=== PATIENT | female | born 1990 | race Two or more races ===

== ENCOUNTER 2017-01-31 08:17 | Emergency (ER) | payer BC, MEDICAID ==
[2017-01-31] MEDS ORDERED: NS 0.9% 1000 ML* 1,000 ML IV ONE (08:24)
[2017-01-31 08:53] LABS: Hematocrit 35 % (35-47); Hemoglobin 11.7 g/dl (12.0-16.0); Mean Corpuscular HGB Conc 33 g/dl (31-36); Mean Corpuscular Hemoglobin 27 pg (27-31); Mean Corpuscular Volume 81 fL (80-97); Mean Platelet Volume 9 um3 (7.4-10.4); Red Blood Count 4.32 10^6/ul (4.0-5.4); Red Cell Distribution Width 14 % (10.5-15); White Blood Count 6.7 10^3/ul (3.5-10.8)
[2017-01-31 09:13] LABS: Albumin 3.9 g/dL (3.2-5.2); BUN/Creatinine Ratio 13.5 (8-20); Calcium 9.4 mg/dL (8.6-10.3); EGFR African American 186.3 (>60); EGFR Non-African American 144.9 (>60); Globulin 2.9 g/dL (2-4); Magnesium 1.7 mg/dL (1.9-2.7); Potassium 3.6 mmol/L (3.5-5.0); Total Bilirubin 0.3 mg/dL (0.2-1.0); Total Protein 6.8 g/dL (6.4-8.9)
[2017-01-31] MEDS ORDERED: Magnesium Oxide TAB* 400 MG PO ONE (09:39)
[2017-01-31 10:04] LABS: Urine Bilirubin Negative (Negative); Urine Glucose Negative (Negative); Urine Nitrite Negative (Negative)
[2017-01-31 10:20] LABS: Benzodiazepine Urine Screen None Detected (None Detect)
[2017-01-31 10:24] VITALS: BP 108/62
--- NOTE | 2017-02-04 18:31 | ED ---
Jesus Alberto Irwin Thomas, scribed for Luis E Monae MD on 01/31/17 at 0829 . Syncope/Near Syncope - HPI Summary HPI Summary: The pt is a 26 y/o F who is 8-9 weeks BIBA s/p a syncopal episode that occurred earlier this morning when the patient was sitting on a bench. She has complaints of fatigue and nausea since last week. Pt denies any pain or vaginal bleeding. The patient is accompanied by her . - History Of Current Complaint Chief Complaint: EDSyncope Time Seen by Provider: 01/31/17 08:23 Hx Obtained From: Patient Onset/Duration: Lasting Hours - earlier this AM, Resolved Activity At Onset: Other - On a bench Aggravating Factor(s): Nothing Alleviating Factor(s): Spontaneous Resolution Associated Signs And Symptoms: Other - Syncope, fatigue, nausea; NEGATIVE: pain , vaginal bleeding Frequency: Episodes x___ - 1 - Allergies/Home Medications Allergies/Adverse Reactions: Allergies Allergy/AdvReac Type Severity Reaction Status Date / Time No Known Allergies Allergy Verified 01/31/17 08:29 Home Medications: Home Medications Levothyroxine TAB* [Synthroid 25 MCG TAB*] 25 mcg PO DAILY 01/31/17 [History Confirmed 01/31/17] Vitamin 1 tab PO DAILY 01/31/17 [History Confirmed 01/31/17] Progesterone SUPP (NF) [Endometrin SUPP (NF)] 100 mg VAGINAL BID 01/31/17 [ History Confirmed 01/31/17] PMH/Surg Hx/FS Hx/Imm Hx Previously Healthy: Yes Endocrine/Hematology History: Denies: Hx Diabetes Cardiovascular History: Denies: Hx Hypertension, Hx Pacemaker/ICD History: Denies: Hx Renal Disease Sensory History: Denies: Hx Hearing Aid Psychiatric History: Denies: Hx Panic Disorder Infectious Disease History: No Infectious Disease History: Denies: Traveled Outside the [place] in Last 30 Days - Family History Known Family History: Positive: Diabetes - Social History Lives: With Family Alcohol Use: None Hx Substance Use: No Substance Use Type: Reports: None Hx Tobacco Use: No Smoking Status (MU): Never Smoked Tobacco Review of Systems Positive: Fatigue. Negative: Fever Positive: Nausea Negative: other - vaginal bleeding Negative: Other - any pain Positive: Syncope All Other Systems Reviewed And Are Negative: Yes Physical Exam - Summary Physical Exam Summary: VITAL SIGNS: Reviewed. GENERAL: Patient is a well-developed and nourished female who is lying comfortable in the stretcher. Patient is not in any acute respiratory distress. HEAD AND FACE: No signs of trauma. No ecchymosis, hematomas or skull depressions. No sinus tenderness. EYES: PERRLA, EOMI x 2, No injected conjunctiva, no nystagmus. EARS: Hearing grossly intact. Ear canals and tympanic membranes are within normal limits. MOUTH: Oropharynx within normal limits. NECK: Supple, trachea is midline, no adenopathy, no JVD, no carotid bruit, no c- spine tenderness, neck with full ROM. CHEST: Symmetric, no tenderness at palpation LUNGS: Clear to auscultation bilaterally. No wheezing or crackles. CVS: Regular rate and rhythm, S1 and S2 present, no murmurs or gallops appreciated. ABDOMEN: Soft, non-tender. No signs of distention. No rebound no guarding, and no masses palpated. Bowel sounds are normal. EXTREMITIES: FROM in all major joints, no edema, no cyanosis or clubbing. NEURO: Alert and oriented x 3. No acute neurological deficits. Speech is normal and follows commands. SKIN: Dry and warm Triage Information Reviewed: Yes Vital Signs On Initial Exam: Initial Vitals Temp Pulse Resp BP Pulse Ox 97.4 F 80 14 127/81 97 01/31/17 08:26 01/31/17 08:26 01/31/17 08:26 01/31/17 08:26 01/31/17 08:26 Vital Signs Reviewed: Yes Diagnostics - Vital Signs Vital Signs Temp Pulse Resp BP Pulse Ox 01/31/17 08:26 97.4 F 80 14 127/81 97 - Laboratory Result Diagrams: 01/31/17 08:40 01/31/17 08:40 Lab Statement: Any lab studies that have been ordered have been reviewed, and results considered in the medical decision making process. - EKG 08:33 Cardiac Rate: NL EKG Rhythm: Sinus Rhythm EKG Interpretation: [address] elevations. Normal axis. TWI in III. Course/Dx Assessment/Plan: The pt is a 26 y/o F who is 8-9 weeks BIBA s/p a syncopal episode that occurred earlier this morning when the patient was sitting on a bench. She has complaints of fatigue and nausea since last week. Pt denies any pain or vaginal bleeding. The patient is accompanied by her . Test results are without significant abnormality. Urinalysis is negative for UTI. It seems that the patient had a vasovagal syncope. The patient was hydrated and she is back to her normal self. The patient does not have any abd pain or cramping. She denies any vaginal bleeding or discharge; therefore, I did not do an ultrasound since the patient is asymptomatic. The patient is hemodynamically stable and is ambulating without difficulty. - Diagnoses Provider Diagnoses: Vasovagal syncope, Discharge - Discharge Plan Condition: Stable Disposition: HOME Patient Education Materials: (ED), Syncope (ED) Forms: *Work Release Referrals: Sudha Francisco MD [Primary Care Provider] - 3 Days Additional Instructions: Follow up with your primary care provider in 3 days. Return to the emergency department for any new or worsening symptoms. The documentation as recorded by the Jesus Alberto chino Thomas accurately reflects the service I personally performed and the decisions made by , Luis E Monae MD.
== END 2017-01-31 10:33 | disposition home or self-care (01) ==
LOC: ED 08:17
DX: O26.891 Other specified pregnancy related conditions, first trimester (principal); R55 Syncope and collapse
CPT/HCPCS: 36415; 80053; 80307; 81003; 83735; 84702; 85025; 93005; 96360; 99282

== ENCOUNTER 2017-08-31 18:54 | Inpatient (IN) | payer OTHER ==
[2017-08-31] MEDS ORDERED: Dinoprostone* 10 MG VAG.SUPP VAGINAL ONE (19:05)
--- NOTE | 2017-08-31 19:18 | HP ---
General Information - General Information Maternal Age: 27 Grav: 1 Para: 0 SAB: 0 IEA: 0 Estimated Due Date: 09/07/17 Determined By: LMP Gestational Age in Weeks and Days: 30 Weeks and 3 Days Maternal Blood Type and Rh: B Positive - Results this Serology/RPR Result: Non-Reactive Rubella Result: Immune HBsAg Result: Negative HIV Result: Negative Past Medical History Delivery History: See Records Pertinent Past Medical History: See Records - hypothyroid Pertinent Past Surgical History: None Pertinent Family History: Non-Contributory - Antepartal Records Antepartal Records: Reviewed, Complicated by: - insulin controlled gestational diabetes Review of Systems Constitutional: Comfortable CV Complaint: No Respiratory: Shortness of Breath: No Gastrointestinal: No Nausea/Vomiting Genitourinary: No Bleeding, No Leaking Fluid Musculoskeletal: No Complaint Movement: Normal Exam Allergies/Adverse Reactions: Allergies No Known Allergies Allergy (Verified 01/31/17 08:29) - Measurements Pre- Weight: 140 lb - Exam Abdomen: No Upper Quadrant Pain Breast: Breast Exam Deferred Extremities: No Edema Heart: Normal Rhythm/Heart Sounds HEENT: No Significant Findings Lungs: Clear Bilaterally Rectal: Rectal Exam Deferred Targeted Exam Findings See L&D Outpatient Visit Provider Note for Findings: N/A Presenting Part: Vertex - deferred to placement of cervidil EFM Findings - External Monitor Findings Baseline Heart Rate: 130 External Monitor Findings: Accelerations Present, Variability Moderate Contractions: None Assessment/Plan - Reason for Visit Reason for Visit: induction at 39 weeks for gestational diabetes a2 - Obstetrical Risk Factors Obstetrical Risk Factors: Gestational Diabetes - Plan Plan: Induction, Cervical Ripening
--- NOTE | 2017-08-31 20:24 | PN ---
Progress Note - Progress Note Date of Service: 08/31/17 Note: asked to place Cervidil by Dr. Brooks as pt prefers female providers. Mild contractions every 5-6 minutes, not felt by pt. Category 1 FHT. EFW [address] Brooks Cervix: closed, 50%, vtx -2 Cervidil placed without difficulty at 2015
[2017-09-01] MEDS ORDERED: Misoprostol TAB* 100 MCG PO ONE (10:03)
[2017-09-01] MEDS: Misoprostol TAB* 100 MCG PO SCH ×2 (14:35→18:37)
[2017-09-01] MEDS: Insulin NPH(*) 1 UNITS UNIT SUBCUT SCH (21:52)
[2017-09-01] MEDS ORDERED: Dinoprostone* 10 MG VAG.SUPP VAGINAL ONE (23:00)
[2017-09-02] MEDS: Levothyroxine TAB* 50 MCG TAB PO SCH (07:26)
[2017-09-02 08:46] LABS: ABS Basophils 0 10^3/ul (0-0.2); ABS Eosinophils 0.1 10^3/ul (0-0.6); ABS Lymphocytes 1.6 10^3/ul (1.0-4.8); ABS Monocytes 0.6 10^3/ul (0-0.8); ABS Neutrophils 6.7 10^3/ul (1.5-7.7); ABS Nucleated RBC 0 10^3/ul; Eosinophil % 0.6 % (0-6); Hematocrit 42 % (35-47); Hemoglobin 13.9 g/dl (12.0-16.0); Lymphocyte % 17.7 % (25-47); Mean Corpuscular HGB Conc 33 g/dl (31-36); Mean Corpuscular Hemoglobin 26 pg (27-31); Mean Corpuscular Volume 80 fL (80-97); Mean Platelet Volume 10.4 um3 (7.4-10.4); Nucleated Red Blood Cells % 0.1; Platelet Count 183 10^3/ul (150-450); Red Cell Distribution Width 17 % (10.5-15)
[2017-09-02] MEDS ORDERED: Nalbuphine* 10 MG/ML 1 ML VIAL IV ONE (11:13)
[2017-09-02] MEDS ORDERED: Promethazine INJ(RESTRICTED)* 25 MG/ML 1 ML VIAL IV ONE (11:14)
[2017-09-02] MEDS ORDERED: Oxytocin in LR* 20 UNITS/1,000 ML BAG IVPB SCH ×2 (12:00→23:45)
[2017-09-02] MEDS ORDERED: OBEPIDURAL* 250 ML EPIDURAL ONE (12:49)
--- NOTE | 2017-09-02 13:20 | PN ---
Progress Note - Progress Note Date of Service: 09/02/17 Note: I was asked to place epidural for the patient. On arrival I found the patient to be unable to speak to me, she was exreamly sedated. She would wake up enough to moan during contractions, but even immediately psot contraction, she was unable to communicate. I would not be able to obtain any reasonable consent from her, and she would not be able to participate in the test doses for the epidural. I explained this to her and the staff and Dr Troncoso. As soon as she is able to communicate, I will be recontacted and will happily attempt an epidural. Altough, depending on timing, the overnight call Anesthesia MD may be responsible for her care.
[2017-09-02] MEDS ORDERED: Sodium Citrate/Citric Acid* 15 ML UDC PO PRN (17:09)
[2017-09-02] MEDS ORDERED: Phenylephrine IV* 40 MCG/ML 10 ML SYRINGE IV PUSH PRN (17:09)
[2017-09-02] MEDS ORDERED: Famotidine TAB* 20 MG PO PRN (17:09)
[2017-09-02] MEDS ORDERED: EPHEDrine (Pressors)* 50 MG/ML VIAL IV PUSH PRN (17:09)
[2017-09-02] MEDS ORDERED: OBEPIDURAL* 250 ML EPIDURAL SCH (18:00)
[2017-09-02] MEDS: Insulin NPH(*) 1 UNITS UNIT SUBCUT SCH (21:00)
[2017-09-02] MEDS ORDERED: Acetaminophen TAB* 325 MG PO PRN (23:50)
[2017-09-02] MEDS ORDERED: Varicella Virus Vaccine Live* 0.5 ML VIAL SUBCUT ONE (23:57)
[2017-09-03] MEDS: Ibuprofen TAB* 600 MG PO PRN ×3 (02:34→19:55)
[2017-09-03] MEDS: Dibucaine 1% 28.35 GM TUBE PR PRN ×2 (02:34→09:25)
[2017-09-03] MEDS: Witch Hazel PAD* JAR TOPICAL PRN ×2 (02:34→09:25)
[2017-09-03 06:24] LABS: ABS Basophils 0.1 10^3/ul (0-0.2); ABS Eosinophils 0 10^3/ul (0-0.6); ABS Lymphocytes 1.3 10^3/ul (1.0-4.8); ABS Monocytes 0.9 10^3/ul (0-0.8); ABS Neutrophils 10.2 10^3/ul (1.5-7.7); ABS Nucleated RBC 0 10^3/ul; Eosinophil % 0.2 % (0-6); Hematocrit 36 % (35-47); Lymphocyte % 10.5 % (25-47); Mean Corpuscular HGB Conc 34 g/dl (31-36); Mean Corpuscular Hemoglobin 27 pg (27-31); Mean Corpuscular Volume 79 fL (80-97); Mean Platelet Volume 10.3 um3 (7.4-10.4); Nucleated Red Blood Cells % 0.1; Platelet Count 161 10^3/ul (150-450); Red Blood Count 4.52 10^6/ul (4.00-5.40); Red Cell Distribution Width 17 % (10.5-15); White Blood Count 12.6 10^3/ul (3.5-10.8)
[2017-09-03] MEDS: Levothyroxine TAB* 50 MCG TAB PO SCH (06:40)
[2017-09-03] MEDS: Ferrous Gluconate TAB* 324 MG TAB PO SCH ×2 (09:00→20:07)
[2017-09-03] MEDS: Docusate CAP* 100 MG PO SCH ×3 (09:25→20:18)
[2017-09-03] MEDS: Insulin NPH(*) 1 UNITS UNIT SUBCUT SCH (19:38)
[2017-09-03] MEDS: Simethicone TAB* 80 MG TAB.CHEW PO SCH ×2 (20:05→20:06)
[2017-09-04] MEDS: Ibuprofen TAB* 600 MG PO PRN ×2 (02:39→09:40)
[2017-09-04] MEDS: Levothyroxine TAB* 50 MCG TAB PO SCH (06:13)
[2017-09-04 08:21] VITALS: BP 113/78
[2017-09-04] MEDS: Docusate CAP* 100 MG PO SCH (09:40)
== END 2017-09-04 12:44 | disposition home or self-care (01) | DRG 560 ==
LOC: MCHOBOUT 18:54 → MCHOB 19:11
PROVIDERS: ADMIT Obstetrics & Gynecology; ATTEND Obstetrics & Gynecology
PROC: 3E0P7VZ Introduction of Hormone into Female Reproductive, Via Natural or Artificial Opening (ICD-10-PCS; 2017-08-31)
PROC: 3E033VJ Introduction of Other Hormone into Peripheral Vein, Percutaneous Approach (ICD-10-PCS; 2017-08-31)
PROC: 4A1HXCZ Monitoring of Products of Conception, Cardiac Rate, External Approach (ICD-10-PCS; 2017-08-31)
PROC: 0KQM0ZZ Repair Perineum Muscle, Open Approach (ICD-10-PCS; principal; 2017-09-02)
PROC: 10E0XZZ Delivery of Products of Conception, External Approach (ICD-10-PCS; 2017-09-02)
DX: O24.424 Gestational diabetes mellitus in childbirth, insulin controlled (principal); O99.284 Endocrine, nutritional and metabolic diseases complicating childbirth; E03.9 Hypothyroidism, unspecified; O70.1 Second degree perineal laceration during delivery; O32.2XX0 Maternal care for transverse and oblique lie, not applicable or unspecified; Z3A.39 39 weeks gestation of pregnancy; Z37.0 Single live birth
CPT/HCPCS: 36415; 59200; 85025; 86850; 86900; 86901; A9270-GY; J2300; J2550; S0191

== ENCOUNTER 2019-02-04 10:43 | Emergency (ER) | payer OTHER ==
[2019-02-04 10:57] VITALS: BP 104/68
--- NOTE | 2019-02-04 11:07 | UC ---
Complaint Female HPI - HPI Summary HPI Summary: Patient is a 29yo female presenting with and baby for nausea and vomiting that began last night around 8pm. Patient states she has thrown up ~15 times since and has not been able to keep down food or fluids. States last episode of vomiting was at 8:30 this morning. Notes persistent nausea. Also notes sore throat now. Denies URI symptoms. Denies abdominal pain. Denies diarrhea. Denies hematemesis. Denies fever and chills. Denies headache and body aches. Patient states her child was sick with similar symptoms, diagnosed with a viral illness, and that her symptoms resolved 2 days ago. Denies possibility of . - History Of Current Complaint Chief Complaint: UCGeneralIllness Stated Complaint: VOMITING Hx Obtained From: Patient, Family/Cost Control Supervisor - Hx Last Menstrual Period: 01/05/19 Onset/Duration: Sudden Onset, Lasting Hours Timing: Intermittent Severity Currently: None Pain Intensity: 0 Pain Scale Used: 0-10 Numeric - Allergies/Home Medications Allergies/Adverse Reactions: Allergies Allergy/AdvReac Type Severity Reaction Status Date / Time No Known Allergies Allergy Verified 02/04/19 10:49 Home Medications: Home Medications Biotin 1 mg PO DAILY 02/04/19 [History Confirmed 02/04/19] Multivit-Min/Iron/Folic Acid/K [Multi For Her Softgel] 1 each PO DAILY 02/04/19 [History Confirmed 02/04/19] PMH/Surg Hx/FS Hx/Imm Hx Previously Healthy: Yes - Surgical History Surgical History: None - Family History Known Family History: Positive: Diabetes - Social History Occupation: Employed Part-time Lives: With Family Alcohol Use: None Substance Use Type: None Smoking Status (MU): Never Smoked Tobacco - Immunization History Most Recent Influenza Vaccination: not indicated Most Recent Pneumonia Vaccination: not indicated Review of Systems All Other Systems Reviewed And Are Negative: Yes Constitutional: Positive: Negative. Negative: Fever, Chills ENT: Positive: Sore Throat - after vomiting Respiratory: Positive: Negative. Negative: Shortness Of Breath, Cough Cardiovascular: Positive: Negative. Negative: Palpitations, Chest Pain Gastrointestinal: Positive: Vomiting, Nausea. Negative: Abdominal Pain, Diarrhea Genitourinary: Positive: Negative Musculoskeletal: Positive: Negative. Negative: Myalgia Neurological: Positive: Negative. Negative: Headache Physical Exam Triage Information Reviewed: Yes Appearance: Well-Appearing, No Pain Distress, Well-Nourished Vital Signs: Initial Vital Signs Temp 99.1 F 02/04/19 10:51 Pulse 86 02/04/19 10:51 Resp 16 02/04/19 10:51 BP 104/68 02/04/19 10:51 Pulse Ox 98 02/04/19 10:51 Vital Signs Reviewed: Yes Eyes: Positive: Conjunctiva Clear ENT: Positive: Hearing grossly normal, Pharyngeal erythema, TMs normal, Uvula midline. Negative: Tonsillar swelling, Tonsillar exudate Neck exam: Normal Neck: Positive: Supple, Nontender, No Lymphadenopathy Respiratory Exam: Normal Respiratory: Positive: Lungs clear, Normal breath sounds, No respiratory distress Cardiovascular Exam: Normal Cardiovascular: Positive: RRR. Negative: Tachycardia Abdominal Exam: Normal Abdomen Description: Positive: Nontender, Soft. Negative: CVA Tenderness (R), CVA Tenderness (L), Distended, Guarding, McBurney's Point Tenderness Bowel Sounds: Positive: Present Neurological: Positive: Alert Psychological: Positive: Age Appropriate Behavior Skin Exam: Normal Complaint Female Dx - Course Course Of Treatment: Patient received zofran for nausea. She was then given cracker and water, which she was able to keep down. Patient noted feeling better with nausea dissipating. I instructed patient to continue with symptomatic treatment including taking zofran as needed. Instructed patient to go to ED if symptoms worsen. Patient VS normal. Patient voiced understanding and agreed with treatment plan. - Differential Dx/Diagnosis Provider Diagnosis: Nausea and vomiting in adult Discharge ED - Sign-Out/Discharge Documenting (check all that apply): Patient Departure All imaging exams completed and their final reports reviewed: No Studies - Discharge Plan Condition: Stable Disposition: HOME Prescriptions: Ondansetron ODT TAB* [Zofran 4 MG Odt TAB*] 4 mg SL Q6H PRN #8 tab.odt PRN Reason: Nausea/Vomiting Patient Education Materials: Acute Nausea and Vomiting (ED) Forms: *Work Release Referrals: Luis E Victor MD [Primary Care Provider] - If Needed Additional Instructions: As discussed, take the zofran every 6 hours as needed for your nausea and vomiting. Get plenty of rest and fluids. Eat a bland diet, such as bread, bananas, and rice while symptoms are present. Go to the emergency department if your symptoms do not resolve or you develop fever, excessive vomiting, abdominal pain, or are unable to keep fluids down. - Billing Disposition and Condition Condition: STABLE Disposition: Home - Attestation Statements Provider Attestation: I was available for consult. This patient was seen by the [facility]AD[facility]. The patient was not presented to, seen by, or examined by me. -Mery
[2019-02-04] MEDS ORDERED: Ondansetron ODT TAB* 4 MG SL ONE (11:15)
--- OUTSIDE RECORDS SUMMARY | 2019-02-06 16:01 | XMS REPORT | Continuity of Care Document ---
:1990 External Reference #:[id number] Author Name Mena Shi MD (transmitted by agent of provider Lisseth Burrell) Address [address], [place] [address] Care Team Providers Name Role Phone Luis E Victor III, MD - Internal Care Team Information Roll Cutter [phone] Medicine Warren Perdomo MD - Otolaryngology Care Team Information Roll Cutter Problems Description No Information Available Social History Type Date Description Comments Sex Unknown ETOH Use Denies alcohol use Tobacco Use Start: Unknown Patient has never smoked Smoking Status Reviewed: 01/25/19 Patient has never smoked Exercise Type/Frequency Exercises rarely Allergies, Adverse Reactions, Alerts Description No Known Drug Allergies Medications Active Medications SIG Qnty Indications Ordering Provider Date Vitamin D 1 by mouth every Unknown (Cholecalciferol) day fall/winter 400Unit Capsules Vitamins take one Unknown 28-0.8mg capsule/tablet Tablets daily by mouth Biotin 1 by mouth once Unknown 5000mcg Capsules a day Immunizations CPT Code Status Date Vaccine Reaction Lot # [id number] Given 01/25/2019 Influenza Virus Vaccine, No immediate reaction [id number] Quadrivalent ([id number]), Derived From Cell [id number] Given 11/24/2017 Influenza Virus Vaccine, [id number] Quadrivalent, Split, Preservative Free [id number] Given 03/07/2016 Tdap - Tetanus/Diptheria/Acellular Pertussis Vital Signs Date Vital Result Comment 01/25/2019 1:11pm Height 62 inches 5'2" Weight 143.50 lb Heart Rate 80 /min BP Systolic Sitting 119 mmHg BP Diastolic Sitting 76 mmHg Body Temperature 97.9 F O2 % BldC Oximetry 96 % BMI (Body Mass Index) 26.2 kg/m2 09/19/2018 9:18am Height 62 inches 5'2" Weight 136.00 lb Heart Rate 66 /min BP Systolic Sitting 107 mmHg BP Diastolic Sitting 72 mmHg BMI (Body Mass Index) 24.9 kg/m2 Results Test Acquired Date Facility Test Result H/L Range Note Laboratory test 09/16/2018 [facility] TSH 4.40 Normal 0.34- 5.[address] (Thyroid mcIU/[place] [address] Stim [phone] Horm) Procedures Description No Information Available Medical Devices Description No Information Available Encounters Type Date Location Provider Dx Diagnosis Office Visit 09/19/2018 [facility] Luis E Barrientos L98.9 Disorder of the skin 9:20a Medicine - Jomar Victor M.D. and subcutaneous tissue, unspecified Assessments Date Code Description Provider 01/25/2019 Z12.4 Encounter for screening for malignant Mena Sih MD neoplasm of cervix 01/25/2019 Z23 Encounter for immunization Mena Shi MD 09/19/2018 L98.9 Disorder of the skin and subcutaneous tissue, Luis E Victor M.D. unspecified Plan of Treatment 01/25/2019 - Mena Shi MDZ12.4 Encounter for screening for malignant neoplasm of cervixNew Labs:Cytology, Ordered: 01/25/19Z23 Encounter for immunization Functional Status Description No Information Available Mental Status Description No Information Available Referrals Refer to Reason for Referral Status Appt Date Warren Perdomo MD newly noted lump on inner lower lip Received Partial [address] [place], [place] [id number] [phone]
== END 2019-02-04 12:15 | disposition home or self-care (01) ==
LOC: UCEAST 10:43
DX: R11.2 Nausea with vomiting, unspecified (principal); J02.9 Acute pharyngitis, unspecified
CPT/HCPCS: 99212; A9270-GY; G0463

== ENCOUNTER 2020-06-27 08:01 | Inpatient (IN) ==
[2020-06-27] MEDS ORDERED: Buffered Lidocaine 1% SYRIN 1 ml INTRADERM ONE (09:51)
[2020-06-27] MEDS ORDERED: Lactated Ringers 1000 ml BAG 1,000 ML IV ONE ×2 (09:51→21:09)
[2020-06-27] MEDS ORDERED: Lactated Ringers 1000 ml BAG 1,000 ML IV SCH ×3 (10:00→23:00)
[2020-06-27 12:25] LABS: Urine Benzodiazepine Screen None Detected (None Detect); Urine Cannabinoids Screen None Detected (None Detect); Urine Opiates Screen None Detected (None Detect)
[2020-06-27] MEDS ORDERED: OBEPIDURAL 250 ML EPIDURAL ONE (20:31)
[2020-06-27 20:37] LABS: ABS Eosinophils 0.1 10^3/ul (0-0.6); ABS Monocytes 0.6 10^3/ul (0-0.8); ABS Neutrophils 4.7 10^3/ul (1.5-7.7); Eosinophil % 0.7 %; Hematocrit 41 % (35-47); Hemoglobin 13.9 g/dL (12.0-16.0); Lymphocyte % 26.7 %; Mean Corpuscular HGB Conc 34 g/dL (31-36); Mean Corpuscular Hemoglobin 28 pg (27-31); Mean Corpuscular Volume 84 fL (80-97); Mean Platelet Volume 10.1 fL (7.4-10.4); Platelet Count 174 10^3/uL (150-450); Red Blood Count 4.93 10^6 /uL (3.70-4.87); Red Cell Distribution Width 16 % (10-15); White Blood Count 7.4 10^3/uL (3.5-10.8)
[2020-06-27] MEDS ORDERED: Sodium Citrate/Citric Acid LIQ 15 ML UDC PO PRN (21:09)
[2020-06-27] MEDS ORDERED: OBEPIDURAL 250 ML EPIDURAL SCH (22:00)
[2020-06-27 22:02] LABS: Urine Appearance Cloudy; Urine Bilirubin Negative (Negative); Urine Blood 1+ (Negative); Urine Color Yellow; Urine Glucose Negative (Negative); Urine Ketones Negative (Negative); Urine Nitrite Negative (Negative); Urine Protein Negative (Negative); Urine Specific Gravity 1.011 (1.002-1.030); Urine Urobilinogen Negative (Negative)
[2020-06-27 22:25] LABS: Urine Bacteria Absent (Absent); Urine Red Blood Cell 2+(6-10/hpf) (Absent); Urine Squamous Epithelial Cell Present (Absent); Urine White Blood Cell Trace(0-5/hpf) (Absent)
[2020-06-27] MEDS ORDERED: Oxytocin in LR 20 UNITS/1,000 ML BAG IVPB ONE (22:35)
[2020-06-27] MEDS ORDERED: Dibucaine 1% OINT 28.35 GM TUBE PR PRN (22:51)
[2020-06-27] MEDS ORDERED: Glycerin ADULT 2.4 gm SUPP PR PRN (22:51)
[2020-06-27] MEDS ORDERED: Witch Hazel PAD JAR TOPICAL PRN (22:51)
[2020-06-27] MEDS ORDERED: Oxytocin in LR 20 UNITS/1,000 ML BAG IVPB SCH (23:00)
[2020-06-28 06:21] LABS: ABS Lymphocytes 1.9 10^3/ul (1.0-4.8); ABS Monocytes 0.7 10^3/ul (0-0.8); ABS Neutrophils 7.7 10^3/ul (1.5-7.7); Eosinophil % 0.5 %; Hematocrit 37 % (35-47); Hemoglobin 12.3 g/dL (12.0-16.0); Lymphocyte % 18.6 %; Mean Corpuscular HGB Conc 33 g/dL (31-36); Mean Corpuscular Hemoglobin 28 pg (27-31); Mean Corpuscular Volume 84 fL (80-97); Mean Platelet Volume 10.1 fL (7.4-10.4); Platelet Count 148 10^3/uL (150-450); Red Blood Count 4.41 10^6 /uL (3.70-4.87); Red Cell Distribution Width 16 % (10-15); White Blood Count 10.4 10^3/uL (3.5-10.8)
[2020-06-29 08:12] VITALS: BP 107/64
[2020-06-29] MEDS ORDERED: Varicella Virus Vaccine Live 0.5 ML VIAL SUBCUT ONE (13:10)
== END 2020-06-29 14:15 | disposition home or self-care (01) | DRG 560 ==
LOC: MCHOBOUT 08:01 → MCHOB 08:39
PROVIDERS: ADMIT Obstetrics & Gynecology; ATTEND Obstetrics & Gynecology